=== PATIENT | male | born 1990 | race Caucasian/White ===

== ENCOUNTER 2019-11-30 05:33 | Emergency (ER) | payer SELFPAY ==
[~2019-11-30] VITALS: Ht 177.8 cm; Wt 93.2 kg
[2019-11-30 05:44] VITALS: Ht 177.8 cm; Wt 93.2 kg
[2019-11-30 06:06] LABS: BILIRUBIN NEGATIVE (NEGATIVE); KETONE NEGATIVE (NEGATIVE); NITRITE NEGATIVE (NEGATIVE); UROBILINOGEN NORMAL mg/dL (< 2)
[2019-11-30 06:10] LABS: BASOPHILS 0.2 % (0-2); EOSINOPHILS 3.3 % (0-7); HEMOGLOBIN 14.2 g/dL (13.5-17.5); IMMATURE GRANULOCYTES 0.2 % (0-5); LYMPHOCYTES 18.1 % (15-50); MCH 28.5 pg (26.0-34.0); MCV 86.2 fL (80.0-100.0); MEAN PLATELET VOLUME 9.7 fL (7.4-10.4); MONOCYTES 9.6 % (2-11); NEUTROPHILS 68.6 % (40-80); PLATELET COUNT 233 10x3/uL (130-400); RBC 4.99 10x6/uL (4.20-6.10); WBC 9.2 10x3/uL (4.8-10.8)
[2019-11-30 06:21] LABS: ALKALINE PHOSPHATASE 58 U/L (30-120); ALT (SGPT) 33 U/L (10-68); BILIRUBIN - TOTAL 0.47 mg/dL (0.2-1.3); CALC OSMOLALITY 285 mosm/kg (275-300); CALCIUM 8.8 mg/dL (8.5-10.1); CARBON DIOXIDE 24.2 mmol/L (21.0-32.0); CHLORIDE - SERUM 106 mmol/L (98-107); CREATININE - SERUM 0.8 mg/dL (0.6-1.3); GLUCOSE 100 mg/dL (74-106); MAGNESIUM - SERUM 2.2 mg/dL (1.8-2.4); PROTEIN - SERUM 7.3 g/dL (6.4-8.2); SODIUM 143 mmol/L (136-145); UREA NITROGEN 15 mg/dL (7-18); eGFR NON AFRICAN AMERICAN > 90 mL/min (90-120)
[2019-11-30 06:21] LABS: UDS - AMPHET NEGATIVE QUAL (NEGATIVE); UDS - BARB NEGATIVE QUAL (NEGATIVE); UDS - BENZO NEGATIVE QUAL (NEGATIVE); UDS - COCAINE NEGATIVE QUAL (NEGATIVE); UDS - OPIATE NEGATIVE QUAL (NEGATIVE); UDS - PCP NEGATIVE QUAL (NEGATIVE); UDS - THC POSITIVE QUAL (NEGATIVE)
[2019-11-30] MEDS ORDERED: AUGMENTIN 875-11 TAB PO (07:01)
[2019-11-30] MEDS ORDERED: MUCINEX DM ER1 EAC1 PO (07:02)
[2019-11-30 07:10] VITALS: BP 139/75
== END 2019-11-30 07:10 | disposition home or self-care (01) ==
LOC: D.ER 05:33
PROVIDERS: Family Medicine
DX: J32.9 Chronic sinusitis, unspecified (principal); F15.10 Other stimulant abuse, uncomplicated; Z72.0 Tobacco use; R05 Cough